=== PATIENT | female | born 1990 | race Caucasian/White ===

== ENCOUNTER 2018-11-06 13:29 | Emergency (ER) | payer SELFPAY ==
--- NOTE | 2018-11-06 15:26 | ER ---
Nurse's Notes [facility] Name: Graciela Graham Age: 27 yrs Sex: Female : 1990 Arrival Date: 11/06/2018 Time: 13:34 Bed 30 Private MD: None, None Diagnosis: Acute suppurative otitis media with spontaneous rupture of ear drum, unspecified ear Presentation: 11/06 13:56 Presenting complaint: Patient states: i have cold symptoms for 2 weeks and last night hj my L ear started to clogged up and today it started draining;. Transition of care: patient was not received from another setting of care. Onset of symptoms was November 06, 2018. Risk Assessment: Do you want to hurt yourself or someone else? Patient reports no desire to harm self or others. Initial Sepsis Screen: Does the patient meet any 2 criteria? No. Patient's initial sepsis screen is negative. Does the patient have a suspected source of infection? Yes:. Care prior to arrival: None. 13:56 Method Of Arrival: Ambulatory 13:56 Acuity: MANOLO 4 hj Triage Assessment: 13:58 General: Appears in no apparent distress. uncomfortable, Behavior is calm, cooperative, hj appropriate for age. Pain: Complains of pain in left ear. EENT: Reports pain in left ear. 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 - Social history:: Smoking status: Patient uses tobacco products, Patient uses alcohol. - Ebola Screening: : Patient negative for fever greater than or equal to 101.5 degrees Fahrenheit, and additional compatible Ebola Virus Disease symptoms Patient denies exposure to infectious person Patient denies travel to an Ebola-affected area in the 21 days before illness onset. Screenin:58 Abuse screen: Denies threats or abuse. Denies injuries from another. Nutritional hj screening: No deficits noted. Tuberculosis screening: No symptoms or risk factors identified. Fall Risk None identified. Assessment: 15:33 General: Appears in no apparent distress. comfortable, Behavior is calm, cooperative. mg2 Pain: Complains of pain in left ear Pain does not radiate. Pain currently is 3 out of 10 on a pain scale. Quality of pain is described as aching, Pain began gradually, 2-3 days ago. Is intermittent, Alleviated by medications, rest. Neuro: Level of Consciousness is awake, alert, obeys commands, Oriented to person, place, time, situation. Cardiovascular: Capillary refill < 3 seconds Patient's skin is warm and dry. Respiratory: Airway is patent Respiratory effort is even, unlabored, Respiratory pattern is regular, symmetrical. GI: No signs and/or symptoms were reported involving the gastrointestinal system. : No signs and/or symptoms were reported regarding the genitourinary system. EENT: Reports pain in left ear. Derm: Skin is intact, is healthy with good turgor, Skin is pink, warm \T\ dry. normal. Musculoskeletal: No signs and/or symptoms reported regarding the musculoskeletal system. Vital Signs: 13:58 BP 111 / 80; Pulse 87; Resp 18; Temp 97.8(TE); Pulse Ox 99% on R/A; Weight 52.16 kg; hj Height 4 ft. 11 in. (149.86 cm); Pain 4/10; 13:58 Body Mass Index 23.23 (52.16 kg, 149.86 cm) hj ED Course: 13:34 Patient arrived in ED. mr 13:35 None, None is Private Physician. mr 13:57 Triage completed. hj 13:58 Arm band placed on left wrist. hj 14:00 Patient has correct armband on for positive identification. Bed in low position. Call hj light in reach. Side rails up X 1. Adult w/ patient. 14:55 Johann Rubio PA is PHCP. cp 14:56 Mookie Weber MD is Attending Physician. cp 15:00 Deric Fuentes, STEVEN is Primary Nurse. mg2 15:22 Caprice Ac MD is Referral Physician. cp 15:35 No provider procedures requiring assistance completed. Patient did not have IV access mg2 during this emergency room visit. Administered Medications: No medications were administered Outcome: 15:24 Discharge ordered by . cp 15:35 Discharged to home ambulatory, with family. mg2 15:35 Condition: stable 15:35 Discharge instructions given to patient, family, Instructed on discharge instructions, follow up and referral plans. medication usage, Demonstrated understanding of instructions, follow-up care, medications, Prescriptions given X 2. 15:36 Patient left the ED. mg2 Signatures: Minal Holm ChuckieKwabena, RN RN hj Johann Rubio PA PA cp Gardose, Michele, STEVEN RN mg2 Corrections: (The following items were deleted from the chart) 14:00 13:58 Pulse 87bpm; Resp 18bpm; Pulse Ox 99% RA; Temp 97.8F Temporal; 52.16 kg; Height 4 hj ft. 11 in.; BMI: 23.2; Pain 4/10; hj
--- NOTE | 2018-11-06 15:26 | EDPHYS ---
Physician Documentation [facility] Name: Graciela Graham Age: 27 yrs Sex: Female : 1990 Arrival Date: 11/06/2018 Time: 13:34 Bed 30 Private MD: None, None ED Physician Mookie Weber HPI: 11/06 15:15 This 27 yrs old Female presents to ER via Ambulatory with complaints of Ear cp Pain. 15:15 The patient presents with drainage, that is purulent. The complaints affect the left cp ear. Onset: The symptoms/episode began/occurred this morning. Associated signs and symptoms: Pertinent positives: sore throat, cough, sinus trouble. Severity of symptoms: in the emergency department the symptoms are unchanged despite home interventions. 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 - Social history:: Smoking status: Patient uses tobacco products, Patient uses alcohol. - Ebola Screening: : Patient negative for fever greater than or equal to 101.5 degrees Fahrenheit, and additional compatible Ebola Virus Disease symptoms Patient denies exposure to infectious person Patient denies travel to an Ebola-affected area in the 21 days before illness onset. ROS: 15:16 Eyes: Negative for injury, pain, redness, and discharge. cp 15:16 Constitutional: Negative for body aches, chills, fever, poor PO intake. 15:16 ENT: Positive for drainage from ear(s), ear pain, sinus congestion, Negative for sore throat, difficulty swallowing, difficulty handling secretions. 15:16 Cardiovascular: Negative for chest pain. 15:16 Respiratory: Positive for cough, Negative for shortness of breath, wheezing. 15:16 Abdomen/GI: Negative for abdominal pain, nausea, vomiting, and diarrhea. 15:16 Skin: Negative for rash. 15:16 Neuro: Negative for dizziness, headache, weakness. 15:16 All other systems are negative. Exam: 15:18 Head/Face: Normocephalic, atraumatic. cp 15:18 Constitutional: The patient appears in no acute distress, alert, awake, non-toxic, well developed, well nourished. 15:18 Eyes: Periorbital structures: appear normal, Conjunctiva: normal, no exudate, no injection, Lids and lashes: appear normal, bilaterally. 15:18 ENT: External ear(s): are unremarkable, Ear canal(s): erythema, that is moderate, of the left canal, purulent discharge, that is moderate, in the left canal, TM's: rupture, on the left, with purulent discharge, Examination of the other ear shows no obvious abnormality, Nose: is normal, Mouth: Lips: moist, Oral mucosa: moist, Posterior pharynx: Airway: no evidence of obstruction, patent, Tonsils: no enlargement, no erythema, no exudate, swelling, is not appreciated, erythema, is not appreciated, exudate, is not appreciated. 15:18 Neck: ROM/movement: is normal, is supple, without pain, no range of motions limitations, no meningismus, no nuchal rigidity, Lymph nodes: no appreciated lymphadenopathy. 15:18 Chest/axilla: Inspection: normal, Palpation: is normal, no crepitus, no tenderness. 15:18 Cardiovascular: Rate: normal, Rhythm: regular. 15:18 Respiratory: the patient does not display signs of respiratory distress, Respirations: normal, no use of accessory muscles, no retractions, no splinting, no tachypnea, labored breathing, is not present, Breath sounds: are clear throughout, no decreased breath sounds, no stridor, no wheezing. 15:18 Abdomen/GI: Exam negative for discomfort, distension, guarding, Inspection: abdomen appears normal. 15:18 Skin: cellulitis, is not appreciated, no rash present. Vital Signs: 13:58 BP 111 / 80; Pulse 87; Resp 18; Temp 97.8(TE); Pulse Ox 99% on R/A; Weight 52.16 kg; hj Height 4 ft. 11 in. (149.86 cm); Pain 4/10; 13:58 Body Mass Index 23.23 (52.16 kg, 149.86 cm) MDM: 14:56 Patient medically screened. cp 15:21 Data reviewed: vital signs, nurses notes, and as a result, I will discharge patient. cp Counseling: I had a detailed discussion with the patient and/or guardian regarding: the historical points, exam findings, and any diagnostic results supporting the discharge/admit diagnosis, the need for outpatient follow up, an ENT specialist, to return to the emergency department if symptoms worsen or persist or if there are any questions or concerns that arise at home. Administered Medications: No medications were administered Disposition: 11/07 12:53 Co-signature as Attending Physician, Mookie Weber MD I agree with the assessment and wa plan of care. Disposition: 11/06/18 15:24 Discharged to Home. Impression: Acute suppurative otitis media with spontaneous rupture of ear drum, unspecified ear. - Condition is Stable. - Discharge Instructions: Otitis Media, Adult, Eardrum Perforation, [id number]. - Prescriptions for Augmentin 875- 125 mg Oral Tablet - take 1 tablet by ORAL route every 12 hours for 10 days; 20 tablet. Ciprodex 0.3- 0.1 % Otic Drops, Suspension - instill 4 drops by OTIC route every 12 hours for 7 days , for ears ONLY. instill drops in left ear canal; 1 Container. - Medication Reconciliation Form, Thank You Letter, Antibiotic Education, Prescription Opioid Use form. - Follow up: Caprice Ac MD; When: 1 week; Reason: Recheck today's complaints. - Problem is new. - Symptoms are unchanged. Signatures: Kwabena Noguera, RN RN Johann Lyons PA PA cp Appiah, William, MD MD ks Deric Fuentes RN RN mg2 Corrections: (The following items were deleted from the chart) 11/06 15:36 15:24 11/06/2018 15:24 Discharged to Home. Impression: Acute suppurative otitis media mg2 with spontaneous rupture of ear drum, unspecified ear. Condition is Stable. Forms are Medication Reconciliation Form, Thank You Letter, Antibiotic Education, Prescription Opioid Use. Follow up: Caprice Ac; When: 1 week; Reason: Recheck today's complaints. Problem is new. Symptoms are unchanged. cp
== END 2018-11-06 15:36 | disposition home or self-care (01) ==
LOC: ER 13:29
DX: H66.012 Acute suppurative otitis media with spontaneous rupture of ear drum, left ear (principal); Z72.0 Tobacco use
CPT/HCPCS: 99282

== ENCOUNTER 2019-06-11 13:05 | Emergency (ER) | payer SELFPAY ==
[2019-06-11] MEDS ORDERED: PEN G BENZ LA 2.4 MU/4 ML SYRINGE IM ONE (16:20)
--- NOTE | 2019-06-11 16:28 | ER ---
Nurse's Notes [facility] Name: Graciela Graham Age: 28 yrs Sex: Female : 1990 Arrival Date: 06/11/2019 Time: 13:08 Bed 25 Private MD: None, None Diagnosis: Contact with and (suspected) exposure to infections with a predominantly sexual mode of transmission Presentation: 06/11 13:25 Presenting complaint: Patient states: ex tested positive for syphilis yesterday, feels iw like she has a chancre on inside of mouth/lip, doesn't have a doctor. Transition of care: patient was not received from another setting of care. Onset of symptoms was June 11, 2019. Risk Assessment: Do you want to hurt yourself or someone else? Patient reports no desire to harm self or others. Initial Sepsis Screen: Does the patient meet any 2 criteria? No. Patient's initial sepsis screen is negative. Does the patient have a suspected source of infection? No. Patient's initial sepsis screen is negative. Care prior to arrival: None. 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 - Social history:: Smoking status: Patient uses tobacco products, smokes one-half pack cigarettes per day. - Ebola Screening: : Patient negative for fever greater than or equal to 101.5 degrees Fahrenheit, and additional compatible Ebola Virus Disease symptoms Patient denies exposure to infectious person Patient denies travel to an Ebola-affected area in the 21 days before illness onset No symptoms or risks identified at this time. Screenin:57 Abuse screen: Denies threats or abuse. Denies injuries from another. Nutritional mg2 screening: No deficits noted. Tuberculosis screening: No symptoms or risk factors identified. Fall Risk None identified. Assessment: 15:58 General: Appears in no apparent distress. comfortable, Behavior is calm, cooperative. mg2 Pain: Denies pain. Neuro: Level of Consciousness is awake, alert, obeys commands, Oriented to person, place, time, situation. Cardiovascular: Capillary refill < 3 seconds Patient's skin is warm and dry. Respiratory: Airway is patent Respiratory effort is even, unlabored, Respiratory pattern is regular, symmetrical. GI: No signs and/or symptoms were reported involving the gastrointestinal system. : No signs and/or symptoms were reported regarding the genitourinary system. EENT: Reports painless sore int the mouth. Derm: Skin is intact, is healthy with good turgor, Skin is pink, warm \T\ dry. normal. Musculoskeletal: Circulation, motion, and sensation intact. Capillary refill < 3 seconds. 16:33 Reassessment: patient up for discharge once injection time is clear. mg2 17:05 Reassessment: no reactions noted from the injection. mg2 Vital Signs: 13:27 BP 142 / 85; Pulse 103; Resp 18; Temp 98.1(O); Pulse Ox 100% on R/A; Weight 49.9 kg; iw Height 4 ft. 11 in. (149.86 cm); Pain 0/10; 16:40 BP 130 / 78; Pulse 90; Resp 18; Temp 98.4; Pulse Ox 100% on R/A; mg2 13:27 Body Mass Index 22.22 (49.90 kg, 149.86 cm) iw ED Course: 13:08 Patient arrived in ED. ag5 13:09 None, None is Private Physician. ag5 13:26 Triage completed. iw 13:27 Arm band placed on. iw 15:57 Deric Fuentes, RN is Primary Nurse. mg2 15:57 Patient did not have IV access during this emergency room visit. mg2 15:59 Patient has correct armband on for positive identification. mg2 16:02 Olesya Huffman FNP-C is [facility]. snw 16:02 Navdeep Rodriguez MD is Attending Physician. snw 17:05 No provider procedures requiring assistance completed. mg2 Administered Medications: 16:27 Drug: Bicillin L-A 2.4 million units {Note: 2 ml on each gluteal muscle.} Route: IM; mg2 Site: left gluteus; 17:05 Follow up: Response: No adverse reaction mg2 Outcome: 16:27 Discharge ordered by . snw 17:06 Discharged to home ambulatory. mg2 17:06 Condition: stable 17:06 Discharge instructions given to patient, Instructed on discharge instructions, follow up and referral plans. Demonstrated understanding of instructions, follow-up care. 17:06 Patient left the ED. mg2 Signatures: Olesya Huffman, EVGENY-C CHILD ADVOCATE-Csnw Phyllis Morgan, RN RN iw Deric Fuentes RN RN mg2 Darlene Starkey ag5
--- NOTE | 2019-06-11 16:28 | EDPHYS ---
Physician Documentation [facility] Name: Graciela Graham Age: 28 yrs Sex: Female : 1990 Arrival Date: 06/11/2019 Time: 13:08 Bed 25 Private MD: None, None ED Physician Navdeep Rodriguez HPI: 06/11 16:26 This 28 yrs old Female presents to ER via Ambulatory with complaints of STD snw Exposure. 16:26 Onset: The symptoms/episode began/occurred acutely. Associated signs and symptoms: The snw patient has no apparent associated signs or symptoms, Pertinent positives: anxiety. Modifying factors: The patient symptoms are alleviated by. The patient has not experienced similar symptoms in the past. The patient has been recently seen by a physician: with similar presenting complaints. 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 - Social history:: Smoking status: Patient uses tobacco products, smokes one-half pack cigarettes per day. - Ebola Screening: : Patient negative for fever greater than or equal to 101.5 degrees Fahrenheit, and additional compatible Ebola Virus Disease symptoms Patient denies exposure to infectious person Patient denies travel to an Ebola-affected area in the 21 days before illness onset No symptoms or risks identified at this time. ROS: 16:23 Constitutional: Negative for fever, chills, and weight loss, Eyes: Negative for injury, snw pain, redness, and discharge, ENT: Negative for injury, pain, and discharge, Neck: Negative for injury, pain, and swelling. 16:23 Cardiovascular: Negative for chest pain, palpitations, and edema, Respiratory: Negative for shortness of breath, cough, wheezing, and pleuritic chest pain, Abdomen/GI: Negative for abdominal pain, nausea, vomiting, diarrhea, and constipation, Back: Negative for injury and pain, : Negative for injury, bleeding, discharge, and swelling, MS/Extremity: Negative for injury and deformity, Skin: Negative for injury, rash, and discoloration, Neuro: Negative for headache, weakness, numbness, tingling, and seizure. 16:23 Psych: Positive for anxiety, over situation. Pt notified per ex partner of + result to syphilis. Pt has been tested and is awaiting results but requests treatment now. Exam: 16:22 Constitutional: This is a well developed, well nourished patient who is awake, alert, snw and in no acute distress. Head/Face: Normocephalic, atraumatic. Eyes: Pupils equal round and reactive to light, extra-ocular motions intact. Lids and lashes normal. Conjunctiva and sclera are non-icteric and not injected. Cornea within normal limits. Periorbital areas with no swelling, redness, or edema. ENT: Nares patent. No nasal discharge, no septal abnormalities noted. Tympanic membranes are normal and external auditory canals are clear. Oropharynx with no redness, swelling, or masses, exudates, or evidence of obstruction, uvula midline. Mucous membranes moist. Neck: Trachea midline, no thyromegaly or masses palpated, and no cervical lymphadenopathy. Supple, full range of motion without nuchal rigidity, or vertebral point tenderness. No Meningismus. Chest/axilla: Normal chest wall appearance and motion. Nontender with no deformity. No lesions are appreciated. Respiratory: Lungs have equal breath sounds bilaterally, clear to auscultation and percussion. No rales, rhonchi or wheezes noted. No increased work of breathing, no retractions or nasal flaring. Abdomen/GI: Soft, non-tender, with normal bowel sounds. No distension or tympany. No guarding or rebound. No evidence of tenderness throughout. Back: No spinal tenderness. No costovertebral tenderness. Full range of motion. Skin: Warm, dry with normal turgor. Normal color with no rashes, no lesions, and no evidence of cellulitis. MS/ Extremity: Pulses equal, no cyanosis. Neurovascular intact. Full, normal range of motion. Neuro: Awake and alert, GCS 15, oriented to person, place, time, and situation. Cranial nerves II-XII grossly intact. Motor strength 5/5 in all extremities. Sensory grossly intact. Cerebellar exam normal. Normal gait. 16:22 Cardiovascular: Rate: tachycardic. 16:22 Psych: Behavior/mood is pleasant, cooperative, anxious, Oriented to person, place, time. Vital Signs: 13:27 BP 142 / 85; Pulse 103; Resp 18; Temp 98.1(O); Pulse Ox 100% on R/A; Weight 49.9 kg; iw Height 4 ft. 11 in. (149.86 cm); Pain 0/10; 16:40 BP 130 / 78; Pulse 90; Resp 18; Temp 98.4; Pulse Ox 100% on R/A; mg2 13:27 Body Mass Index 22.22 (49.90 kg, 149.86 cm) iw MDM: 16:04 Patient medically screened. snw 16:29 Data reviewed: vital signs, nurses notes. Data interpreted: Pulse oximetry: on room air snw is 100 %. Interpretation: normal. Counseling: I had a detailed discussion with the patient and/or guardian regarding: the historical points, exam findings, and any diagnostic results supporting the discharge/admit diagnosis, the need for outpatient follow up, to return to the emergency department if symptoms worsen or persist or if there are any questions or concerns that arise at home. Special discussion: Based on the history and exam findings, there is no indication for further emergent testing or inpatient evaluation. I discussed with the patient/guardian the need to see the primary care provider for further evaluation of the symptoms. 06/11 16:19 Order name: Urine Dipstick--Ancillary (enter results); Complete Time: 16:30 bd 06/11 16:19 Order name: Urine --Ancillary (enter results); Complete Time: 16:30 bd 06/11 16:04 Order name: Urine Test (obtain specimen); Complete Time: 16:22 snw 06/11 16:04 Order name: Urine Dipstick-Ancillary (obtain specimen); Complete Time: 16:22 snw Administered Medications: 16:27 Drug: Bicillin L-A 2.4 million units {Note: 2 ml on each gluteal muscle.} Route: IM; mg2 Site: left gluteus; 17:05 Follow up: Response: No adverse reaction mg2 Disposition: 18:45 Co-signature as Attending Physician, Navdeep Rodriguez MD. ma2 Disposition: 06/11/19 16:27 Discharged to Home. Impression: Contact with and (suspected) exposure to infections with a predominantly sexual mode of transmission. - Condition is Stable. - Discharge Instructions: Sexually Transmitted Disease, What You Need to Know About Personal Safety, Adult, Safe Sex. - Medication Reconciliation Form, Thank You Letter, Antibiotic Education, Prescription Opioid Use form. - Follow up: Private Physician; When: 2 - 3 days; Reason: Recheck today's complaints, Continuance of care, Re-evaluation by your physician. Follow up: Emergency Department; When: As needed; Reason: Worsening of condition. Signatures: Dispatcher [employer] EDWI Olesya Huffman, EVGENY-C CONSTRUCTION ELECTRICIAN-Csnw Phyllis Morgan, STEVEN RN iw Navdeep Rodriguez MD MD ma2 Deric Fuentes RN RN mg2 Corrections: (The following items were deleted from the chart) 17:06 16:27 06/11/2019 16:27 Discharged to Home. Impression: Contact with and (suspected) mg2 exposure to infections with a predominantly sexual mode of transmission. Condition is Stable. Forms are Medication Reconciliation Form, Thank You Letter, Antibiotic Education, Prescription Opioid Use. Follow up: Private Physician; When: 2 - 3 days; Reason: Recheck today's complaints, Continuance of care, Re-evaluation by your physician. Follow up: Emergency Department; When: As needed; Reason: Worsening of condition. snw
[2019-06-11 16:29] LABS: Urine Blood NEGATIVE (NEG); Urine Glucose NEGATIVE (NEG); Urine Protein NEGATIVE (NEG); Urine Specific Gravity 1.025 (1.005-1.030)
[2019-06-11 17:49] VITALS: O2SAT 100
[2019-06-11 17:50] VITALS: BP 130/78; TEMP 98.4
== END 2019-06-11 17:06 | disposition home or self-care (01) ==
LOC: ER 13:05
DX: F41.9 Anxiety disorder, unspecified (principal); F17.210 Nicotine dependence, cigarettes, uncomplicated; Z20.2 Contact with and (suspected) exposure to infections with a predominantly sexual mode of transmission
CPT/HCPCS: 81003; 81025; 96372; 99283; J0561

== ENCOUNTER 2019-10-08 08:42 | Emergency (ER) | payer SELFPAY ==
--- OUTSIDE RECORDS SUMMARY | 2019-10-08 08:47 | XMS REPORT | Encounter Summary ---
:1990 Author Reason for Visit annual matcher exam Instructions 1. Contraception care management pap, IG + CT/NG/TV Flagyl 500 mg tablet Discussion Note Breast and pelvic exam performed. Pap obtained. Declines bloodwork. Will call in Flagyl 500 mg 1 po bid x 7 days. rtc in 1 year for wwe. ml Patient educational handouts: No information available. Plan of Care Reminders Provider Appointments Well on or around Khushi Odom Woman Exam 09/29/2020 [facility] Pap, IG + 09/29/[address] [facility]/NG/TV Referral None recorded. Procedures None recorded. Surgeries None recorded. Imaging None recorded. Medications Name Start Date Flagyl 500 mg tablet Take 1 tablet every 12 hours by oral route for 7 days. Medications Administered None recorded. Vitals Height Weight BMI Blood Pressure 4 ft 11 in 113.6 lbs 22.9 kg/m2 134/78 mm[Hg] Results Lab Results None recorded. Allergies Code Code System Name Reaction Severity Status Onset NKDA Problems No Known Problems Procedures None recorded. Vaccine List None recorded. Social History Tobacco Smoking Status Heavy Tobacco Smoker (1/2 PPD) Past Encounters 09/29/2019 Contraception Care Management Khushi Crowell RN SURGICAL: [address], [place] [address], Ph. History of Present Illness Note: <p>Patient is 28 yo female in for wwe. Is on WHP. Last pap- 10 years ago. LMP- 08/30/19., c/o vaginal discharge. Neg PMH. 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 Reported By: Patient Constitutional: Constitutional: no fatigue, no fever, no significant weight gain, no significant weight loss Skin: Skin: no abnormal moles, no rashes Eyes: Eyes: no irritation, no vision changes ENMT: ENMT: no hearing loss, no ear pain, no nose/sinus problems, no sore throat, no snoring, no dry mouth, no mouth ulcers Respiratory: Respiratory: no dyspnea / shortness of breath, no cough, no sputum production, no hemoptysis, no wheezing Cardiovascular: Cardiovascular: no chest pain, no palpitations, no orthopnea Gastrointestinal: Gastrointestinal: no heartburn, no dysphagia, no nausea, no vomiting, no abdominal pain, no bowel movement changes, no diarrhea, no constipation, no rectal bleeding Genitourinary: Genitourinary: no hematuria, no abnormal bleeding, no flank pain, no trouble urinating, no incontinence, no rash, no lesion, no discharge, no vaginal odor, no vaginal itching Endocrine: Menstrual: no menstrual problems, no PMDD symptoms. Menopausal: no menopausal symptoms. Sexual: no sexual problems Musculoskeletal: Musculoskeletal: no muscle aches, no muscle weakness, no arthralgias/joint pain, no back pain Neurological: Neurologic: no headaches, no dizziness, no LOC, no weakness, no numbness, no seizures Psychological: Psych: no depression, no alcoholism, no sleep disturbances Hematologic/Lymphatic: Hematologic/Lymphatic no swollen glands, no bruising Allergic/Immunologic: Allergy/Immunologic: no runny nose, no itching, no hives , no frequent sneezing Physical Exam Annual Oracle Database Consultant Exam DiClemente Reported By: Patient Constitutional: General Appearance: healthy-appearing, well-nourished, well-developed Psychiatric: Orientation: to time, to place, to person. Mood and Affect: active and alert, normal mood, normal affect Skin: Appearance: no rashes, no lesions Neck: Neck: supple, trachea midline, no masses, FROM. Thyroid: no enlargement, no nodules, non-tender Lungs: Respiratory Effort: no intercostal retractions, no accessory muscle usage. Auscultation: clear to auscultation, no wheezing, no rales/crackles, no rhonchi Cardiovascular: Auscultation: RRR, no murmur. Peripheral Vascular: no LLE edema, no RLE edema, no varicosities, no calf tenderness, no palpable cords, pedal pulses intact Abdomen: Auscultation/Inspection/Palpation: normal bowel sounds, soft, non-distended, no tenderness, no hepatomegaly, no splenomegaly, no masses, no CVA tenderness. Hernia: none palpated Breast: Inspection/Palpation: no skin changes, no abnormal secretions, nipple appearance normal, no tenderness, no distinct masses Female Genitalia: Vulva: no masses, no atrophy, no lesions. Vagina: no tenderness, no erythema, no vesicle(s) or ulcers, no cystocele, no rectocele, normal atrophy, abnormal vaginal discharge; thin white discharge noted. ml. Cervix: grossly normal, no discharge, no cervical motion tenderness, sample taken for a Pap smear. Uterus: normal size, normal shape, midline, no uterine prolapse, mobile, non-tender. Bladder/Urethra: normal meatus, no urethral discharge, no urethral mass, bladder non distended. Adnexa/Parametria: no parametrial tenderness, no parametrial mass, no adnexal tenderness, no ovarian mass Lymph Nodes: Palpation: non-palpable submandibular nodes, non-palpable axillary nodes, non-palpable inguinal nodes Rectal Exam: Rectum: normal perianal skin, normal sphincter tone, no hemorrhoids, no masses, heme negative stool
[2019-10-08 10:05] LABS: Urine Blood 2+ (NEG); Urine Glucose NEGATIVE (NEG); Urine Protein 1+ (NEG); Urine pH 6.5 (5.0-7.0)
--- NOTE | 2019-10-08 10:30 | RAD REPORT ---
EXAM DESCRIPTION: RAD - Chest Single View - 10/08/2019 10:22 am CLINICAL HISTORY: COUGH Chest pain. COMPARISON: No comparisons FINDINGS: Portable technique limits examination quality. The lungs are grossly clear. The heart is normal in size. No displaced fractures. IMPRESSION: No acute intrathoracic process suspected.
[2019-10-08 10:38] LABS: Absolute Lymphocytes (CBC) 1.6 K/uL (0.7-4.9); Basophils % 0.9 % (0-1.3); Hematocrit 41.1 % (36.0-45.0); MPV 8.4 fL (7.6-11.3); RBC Red Blood Cell Count 4.49 M/uL (3.86-4.86)
[2019-10-08 10:45] LABS: Barbiturates NEGATIVE (NEGATIVE); Benzodiazepines NEGATIVE (NEGATIVE); Cocaine NEGATIVE (NEGATIVE); METHAMPHETAM NEGATIVE (NEGATIVE); Methadone NEGATIVE (NEGATIVE); Opiates NEGATIVE (NEGATIVE); Phencyclidine NEGATIVE (NEGATIVE); THC Cannibis NEGATIVE (NEGATIVE)
[2019-10-08 11:09] LABS: Albumin 4.4 g/dL (3.4-5.0); Bilirubin Total 0.7 mg/dL (0.2-1.0); Potassium 3.7 mmol/L (3.5-5.1)
--- NOTE | 2019-10-08 11:13 | ER ---
Nurse's Notes [facility] Name: Graciela Graham Age: 28 yrs Sex: Female : 1990 Arrival Date: 10/08/2019 Time: 08:47 Bed 17 Private MD: Diagnosis: Weakness;Hypoglycemia, unspecified;Anxiety disorder, unspecified;Abnormal cytological findings in specimens from female genital organs-abnormal pap smear;Volume depletion Presentation: 10/08 09:03 Presenting complaint: Patient states: Im dying from cervical cancer. I had a pap smear sg several weeks ago and they said i have squamous cells, and need to have a biopsy performed. I think that Im not going to make it, Im having numbness in my arm and I think my vision is blurred. Transition of care: patient was not received from another setting of care. Onset of symptoms was October 08, 2019. Risk Assessment: Do you want to hurt yourself or someone else? Patient reports no desire to harm self or others. Initial Sepsis Screen: Does the patient meet any 2 criteria? No. Patient's initial sepsis screen is negative. Does the patient have a suspected source of infection? No. Patient's initial sepsis screen is negative. Care prior to arrival: None. 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 - Social history:: Smoking status: Patient/guardian denies using tobacco. - Ebola Screening: : Patient negative for fever greater than or equal to 101.5 degrees Fahrenheit, and additional compatible Ebola Virus Disease symptoms Patient denies exposure to infectious person Patient denies travel to an Ebola-affected area in the 21 days before illness onset No symptoms or risks identified at this time. Screenin:00 Abuse screen: Denies threats or abuse. Denies injuries from another. Nutritional ca1 screening: No deficits noted. Tuberculosis screening: No symptoms or risk factors identified. Fall Risk Assessment: 09:10 General: Appears in no apparent distress. slender, well developed, well nourished, sg Behavior is cooperative, anxious. Pain: Denies pain. Neuro: Level of Consciousness is awake, alert, obeys commands, Oriented to person, place, time, Toy Maker are equal bilaterally Moves all extremities. Gait is steady, Speech is normal, Facial symmetry appears normal, Reports blurred vision has resolved at this time numbness in left arm. Cardiovascular: Capillary refill is brisk in bilateral fingers Patient's skin is warm and dry. Chest pain is denied. Respiratory: Airway is patent Respiratory effort is even, unlabored, Respiratory pattern is regular, symmetrical. GI: No signs and/or symptoms were reported involving the gastrointestinal system. : No signs and/or symptoms were reported regarding the genitourinary system. EENT: No signs and/or symptoms were reported regarding the EENT system. Derm: Skin is pink, warm \T\ dry. Musculoskeletal: Circulation, motion, and sensation intact. Range of motion: intact in all extremities. 09:55 Reassessment: Patient appears in no apparent distress at this time. Patient is alert, ca1 oriented x 3, equal unlabored respirations, skin warm/dry/pink. Dr. Salgado at bedside. 11:02 Reassessment: Patient appears in no apparent distress at this time. Patient and/or ca1 family updated on plan of care and expected duration. Pain level reassessed. Patient is alert, oriented x 3, equal unlabored respirations, skin warm/dry/pink. 11:48 Reassessment: Patient appears in no apparent distress at this time. Patient is alert, ca1 oriented x 3, equal unlabored respirations, skin warm/dry/pink. Vital Signs: 09:05 Pulse 100; Resp 18; Temp 97.2; Pulse Ox 99% on R/A; Weight 61.23 kg (R); Height 5 ft. 4 sg in. (162.56 cm); Pain 6/10; 09:07 BP 118 / 83; sg 09:55 BP 112 / 84; Pulse 94; Resp 17 S; Pulse Ox 100% on R/A; ca1 11:02 BP 95 / 72; Pulse 91; Resp 17 S; Pulse Ox 98% on R/A; ca1 11:42 BP 103 / 74 Supine; Pulse 86; Resp 14; Pulse Ox 100% on R/A; mh5 11:42 BP 104 / 80 Sitting; Pulse 87; Resp 16; Pulse Ox 100% on R/A; mh5 11:42 BP 108 / 80 Standing; Pulse 99; Resp 15; Pulse Ox 100% on R/A; mh5 09:05 Body Mass Index 23.17 (61.23 kg, 162.56 cm) ED Course: 08:47 Patient arrived in ED. mr 09:02 Johann Salgado MD is Attending Physician. mike 09:03 Zachery Celis, RN is Primary Nurse. sg 09:03 Arm band placed on. sg 09:05 Triage completed. sg 09:50 Urine collected: clean catch specimen, clear. sg 10:10 No provider procedures requiring assistance completed. Initial lab(s) drawn, by md, ca1 sent to lab. Inserted saline lock: 20 gauge in right antecubital area, using aseptic technique. Blood collected. 10:23 Chest Single View XRAY In Process Unspecified. EDMS 11:04 EKG done, by technology director. reviewed by Johann Salgado MD. tc 11:11 Lizeth Morton MD is Referral Physician. mike 11:33 CT Head Brain wo Cont In Process Unspecified. EDMS 11:44 Patient has correct armband on for positive identification. Bed in low position. Call [facility] light in reach. Side rails up X 1. Warm blanket given. cardiac monitor on. Pulse ox on. NIBP on. 11:51 Lizeth Morton MD is Referral Physician. mike 12:14 IV discontinued, intact, bleeding controlled, No redness/swelling at site. Pressure ca1 dressing applied. Administered Medications: 11:24 Drug: D50W 25 ml Route: IVP; Site: right antecubital; ca1 12:13 Follow up: Response: No adverse reaction; Blood sugar is elevated; BGL 148 ca1 Intake: Outcome: 11:13 Discharge ordered by . mike 11:51 Discharge ordered by . mike 12:14 Discharged to home ambulatory. ca1 12:14 Condition: stable 12:14 Discharge instructions given to patient, Instructed on discharge instructions, follow up and referral plans. no drinking with medication, no driving heavy equipment, medication usage, Demonstrated understanding of instructions, follow-up care, medications, Prescriptions given X 2. 12:14 Patient left the ED. ca1 Signatures: Dispatcher [employer] EDMS Lalita, Zachery, STEVEN RN Johann Champion MD MD [facility] mr Laila Naik, degreasing solution reclaimer EKG [facility] Radha Quinn [facility] Glo Cruz, STEVEN RN ca1
--- NOTE | 2019-10-08 11:13 | EDPHYS ---
Physician Documentation [facility] Name: Graciela Graham Age: 28 yrs Sex: Female : 1990 Arrival Date: 10/08/2019 Time: 08:47 Bed 17 Private MD: ED Physician Johann Salgado HPI: 10/08 09:57 This 28 yrs old Female presents to ER via Ambulatory with complaints of [facility] Vision Problem, Numbness Of Arm. 09:57 The patient or guardian complains of pain. 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 - Social history:: Smoking status: Patient/guardian denies using tobacco. - Ebola Screening: : Patient negative for fever greater than or equal to 101.5 degrees Fahrenheit, and additional compatible Ebola Virus Disease symptoms Patient denies exposure to infectious person Patient denies travel to an Ebola-affected area in the 21 days before illness onset No symptoms or risks identified at this time. ROS: 09:58 Constitutional: Negative for fever, chills, and weight loss, Eyes: Negative for injury, mike pain, redness, and discharge, ENT: Negative for injury, pain, and discharge, Neck: Negative for injury, pain, and swelling, Cardiovascular: Negative for chest pain, palpitations, and edema, Respiratory: Negative for shortness of breath, cough, wheezing, and pleuritic chest pain, Back: Negative for injury and pain, MS/Extremity: Negative for injury and deformity, Skin: Negative for injury, rash, and discoloration, Neuro: Negative for headache, weakness, numbness, tingling, and seizure, Allergy/Immunology: Negative for hives, rash, and allergies, Endocrine: Negative for neck swelling, polydipsia, polyuria, polyphagia, and marked weight changes, Hematologic/Lymphatic: Negative for swollen nodes, abnormal bleeding, and unusual bruising. 09:58 Abdomen/GI: Positive for abdominal cramps. 09:58 : Positive for vaginal discharge. Exam: 09:58 Constitutional: This is a well developed, well nourished patient who is awake, alert, mike and in no acute distress. Head/Face: Normocephalic, atraumatic. Eyes: Pupils equal round and reactive to light, extra-ocular motions intact. Lids and lashes normal. Conjunctiva and sclera are non-icteric and not injected. Cornea within normal limits. Periorbital areas with no swelling, redness, or edema. ENT: Nares patent. No nasal discharge, no septal abnormalities noted. Tympanic membranes are normal and external auditory canals are clear. Oropharynx with no redness, swelling, or masses, exudates, or evidence of obstruction, uvula midline. Mucous membranes moist. Neck: Trachea midline, no thyromegaly or masses palpated, and no cervical lymphadenopathy. Supple, full range of motion without nuchal rigidity, or vertebral point tenderness. No Meningismus. Chest/axilla: Normal chest wall appearance and motion. Nontender with no deformity. No lesions are appreciated. Respiratory: Lungs have equal breath sounds bilaterally, clear to auscultation and percussion. No rales, rhonchi or wheezes noted. No increased work of breathing, no retractions or nasal flaring. Abdomen/GI: Soft, non-tender, with normal bowel sounds. No distension or tympany. No guarding or rebound. No evidence of tenderness throughout. Back: No spinal tenderness. No costovertebral tenderness. Full range of motion. Skin: Warm, dry with normal turgor. Normal color with no rashes, no lesions, and no evidence of cellulitis. MS/ Extremity: Pulses equal, no cyanosis. Neurovascular intact. Full, normal range of motion. Neuro: Awake and alert, GCS 15, oriented to person, place, time, and situation. Cranial nerves II-XII grossly intact. Motor strength 5/5 in all extremities. Sensory grossly intact. Cerebellar exam normal. Normal gait. Psych: Awake, alert, with orientation to person, place and time. Behavior, mood, and affect are within normal limits. 09:58 Cardiovascular: Rate: tachycardic, Rhythm: regular, Pulses: Pulses are 4+ in bilateral radial, brachial, femoral, popliteal, posterior tibial and and dorsalis pedis arteries.. 09:58 Respiratory: the patient does not display signs of respiratory distress, Respirations: normal, Breath sounds: are clear throughout, Respiratory rate: 17 09:58 Musculoskeletal/extremity: Extremities: all appear grossly normal, with no appreciated pain with palpation, ROM: no acute changes, intact in all extremities, Circulation is intact in all extremities. Pulses: Sensation intact. Compartment Syndrome exam of affected extremity: is normal. DVT Exam: No signs of deep vein thrombosis. no pain, no swelling, no tenderness, negative Homans' sign noted on exam, no appreciated bluish discoloration, no erythema, no increased warmth. Vital Signs: 09:05 Pulse 100; Resp 18; Temp 97.2; Pulse Ox 99% on R/A; Weight 61.23 kg (R); Height 5 ft. 4 sg in. (162.56 cm); Pain 6/10; 09:07 BP 118 / 83; sg 09:55 BP 112 / 84; Pulse 94; Resp 17 S; Pulse Ox 100% on R/A; ca1 11:02 BP 95 / 72; Pulse 91; Resp 17 S; Pulse Ox 98% on R/A; ca1 11:42 BP 103 / 74 Supine; Pulse 86; Resp 14; Pulse Ox 100% on R/A; mh5 11:42 BP 104 / 80 Sitting; Pulse 87; Resp 16; Pulse Ox 100% on R/A; mh5 11:42 BP 108 / 80 Standing; Pulse 99; Resp 15; Pulse Ox 100% on R/A; mh5 09:05 Body Mass Index 23.17 (61.23 kg, 162.56 cm) MDM: 09:02 Patient medically screened. [facility] 10:02 Data reviewed: vital signs, nurses notes, lab test result(s), EKG, radiologic studies, [facility] plain films. 10/08 09:49 Order name: Urine Dipstick--Ancillary (enter results); Complete Time: 10:50 10/08 09:49 Order name: Urine --Ancillary (enter results); Complete Time: 10:50 10/08 09:57 Order name: CBC with Diff; Complete Time: 10:50 [facility] 10/08 09:57 Order name: Comprehensive Metabolic Panel; Complete Time: 11:09 [facility] 10/08 09:57 Order name: Chest Single View XRAY; Complete Time: 10:50 [facility] 10/08 09:57 Order name: UDS; Complete Time: 10:50 [facility] 10/08 09:57 Order name: EKG; Complete Time: 09:58 [facility] 10/08 09:57 Order name: EKG - Nurse/Tech; Complete Time: 10:13 [facility] 10/08 11:10 Order name: Orthostatics; Complete Time: 11:45 [facility] 10/08 11:16 Order name: CT Head Brain wo Cont; Complete Time: 11:50 [facility] Administered Medications: 11:24 Drug: D50W 25 ml Route: IVP; Site: right antecubital; ca1 12:13 Follow up: Response: No adverse reaction; Blood sugar is elevated; BGL 148 ca1 Disposition: 10/08/19 11:51 Discharged to Home. Impression: Weakness, Hypoglycemia, unspecified, Anxiety disorder, unspecified, Abnormal cytological findings in specimens from female genital organs - abnormal pap smear, Volume depletion. - Condition is Stable. - Discharge Instructions: Panic Attacks, Hypoglycemia, Weakness, Fatigue, Blood Glucose Monitoring, Adult, Weakness, [id number], Panic Attacks, Vpzg-[id number], Hypoglycemia, [id number]-[id number]. - Prescriptions for Xanax 0.5 mg Oral Tablet - take 1 tablet by ORAL route every 8 hours As needed; 20 tablet. Zofran 4 mg Oral Tablet - take 1 tablet by ORAL route every 12 hours As needed; 20 tablet. - Medication Reconciliation Form, Thank You Letter, Antibiotic Education, Prescription Opioid Use form. - Follow up: Private Physician; When: 2 - 3 days; Reason: Recheck today's complaints, Continuance of care, Re-evaluation by your physician. Follow up: Lizeth Morton; When: 2 - 3 days; Reason: Recheck today's complaints, Re-evaluation by your physician. - Problem is new. - Symptoms have improved. Signatures: Dispatcher [employer] EDMS Zachery Celis RN RN Johann Champion MD MD cha Acob, Cheryl, RN RN ca1 Corrections: (The following items were deleted from the chart) 11:15 11:13 10/08/2019 11:13 Discharged to Home. Impression: Anxiety disorder, unspecified; [facility] Volume depletion; Hypoglycemia, unspecified; Abnormal cytological findings in specimens from female genital organs - abnormal pap smear. Condition is Stable. Forms are Medication Reconciliation Form, Thank You Letter, Antibiotic Education, Prescription Opioid Use. Follow up: Private Physician; When: 2 - 3 days; Reason: Recheck today's complaints, Continuance of care, Re-evaluation by your physician. Follow up: Lizeth Morton; When: 2 - 3 days; Reason: Recheck today's complaints, Continuance of care, Re-evaluation by your physician. Problem is new. Symptoms have improved. [facility] 12:14 11:51 10/08/2019 11:51 Discharged to Home. Impression: Weakness; Hypoglycemia, ca1 unspecified; Anxiety disorder, unspecified; Abnormal cytological findings in specimens from female genital organs - abnormal pap smear; Volume depletion. Condition is Stable. Discharge Instructions: Panic Attacks, Hypoglycemia, Weakness, Fatigue, Blood Glucose Monitoring, Adult, Weakness, [id number]-[id number], Panic Attacks, [id number]-Ihjx, Hypoglycemia, [id number]-[id number]. Prescriptions for Xanax 0.5 mg Oral Tablet - take 1 tablet by ORAL route every 8 hours As needed; 20 tablet, Zofran 4 mg Oral Tablet - take 1 tablet by ORAL route every 12 hours As needed; 20 tablet, Xanax 0.5 mg Oral Tablet - take 1 tablet by ORAL route every 8 hours As needed; 20 tablet, Zofran 4 mg Oral Tablet - take 1 tablet by ORAL route every 12 hours As needed; 20 tablet. and Forms are Medication Reconciliation Form, Thank You Letter, Antibiotic Education, Prescription Opioid Use. Follow up: Private Physician; When: 2 - 3 days; Reason: Recheck today's complaints, Continuance of care, Re-evaluation by your physician. Follow up: Lizeth Morton; When: 2 - 3 days; Reason: Recheck today's complaints, Re-evaluation by your physician. Problem is new. Symptoms have improved. [facility]
[2019-10-08] MEDS ORDERED: D50W 25 GM/50 ML SYRINGE/VIAL IV ONE (11:23)
--- NOTE | 2019-10-08 11:42 | RAD REPORT ---
EXAM DESCRIPTION: CT - Head Brain Wo Cont - 10/08/2019 11:33 am CLINICAL HISTORY: Dizziness, arm numbness, blurred vision COMPARISON: None. TECHNIQUE: Axial 5 mm thick images of the head were obtained without IV contrast. All CT scans are performed using dose optimization technique as appropriate and may include automated exposure control or mA/KV adjustment according to patient size. FINDINGS: No intracranial hemorrhage, mass, edema or shift of mid-line structures. No acute infarcti on changes seen. No abnormal extra-axial fluid collections. Ventricles are normal. Mastoid air cells and visualized portions of the paranasal sinuses are clear. No acute bony findings. IMPRESSION: Negative non-contrast CT head examination.
[2019-10-08 12:27] VITALS: TEMP 97.2
[2019-10-08 12:33] VITALS: BP 108/80; O2SAT 100
--- NOTE | 2019-10-08 13:22 | EKG ---
Test Date: 2019-10-08 Test Time: 10:14:35 It Desktop Support Technician: LITTLE MEASUREMENT RESULTS: Intervals: Rate: 100 NC: 118 QRSD: 86 QT: 352 QTc: 454 [place]: P: 79 NC: 118 QRS: 41 T: 60 INTERPRETIVE STATEMENTS: Normal sinus rhythm Biatrial enlargement Abnormal ECG No previous ECG available for comparison Electronically Signed On 10-08-19 13:20:55 LOFTSMAN by Tolu Childress
== END 2019-10-08 12:14 | disposition home or self-care (01) ==
LOC: ER 08:42
DX: E16.2 Hypoglycemia, unspecified (principal); E86.9 Volume depletion, unspecified; R87.69 Abnormal cytological findings in specimens from other female genital organs; F41.9 Anxiety disorder, unspecified
CPT/HCPCS: 36415; 70450; 71045; 80053; 80307; 81003; 81025; 82947; 85025; 93005; 96374; 99285

== ENCOUNTER 2019-10-26 11:58 | Emergency (ER) | payer OTHER, SELFPAY ==
--- NOTE | 2019-10-26 15:09 | RAD REPORT ---
EXAM DESCRIPTION: US - Transvaginal Study Probe - 10/26/2019 2:46 pm CLINICAL HISTORY: pelvic pain Pelvic pain. COMPARISON: No comparisons FINDINGS: The uterus is normal in size, shape and echotexture. The uterus measures 9.0 x 5.1 x 3.7 c m. The endometrial stripe measures 8 mm, normal. Both ovaries are normal in size, shape and echotexture. The right ovary measures 3.9 x 2.5 x 2.3 cm. The left ovary measures 2.4 x 1.9 x 1.7 cm. No ovarian or parovarian lesions. No adnexal masses. Normal Doppler blood flow was demonstrated to both ovaries. No significant pelvic ascites. IMPRESSION: Unremarkable study.
--- NOTE | 2019-10-26 15:20 | EDPHYS ---
Physician Documentation [facility] Name: Graciela Graham Age: 28 yrs Sex: Female : 1990 Arrival Date: 10/26/2019 Time: 12:01 Bed 30 Private MD: ED Physician Johann Salgado HPI: 10/26 13:46 This 28 yrs old Female presents to ER via Ambulatory with complaints of jmm Foreign body In Vagina. 13:46 The patient presents with vaginal discharge, FB. Onset: The symptoms/episode jmm began/occurred 4 month(s) ago. Modifying factors: The symptoms are alleviated by nothing, the symptoms are aggravated by nothing. Associated signs and symptoms: Pertinent positives: fever. This is a 28 year old female with no chronic medical conditions that presents to the ED with complaints of 4 months of vaginal discharge. Patient states she had an abnormal pap smear and is scheduled to see oncology. Patient states having fever and feeling faint over the past month with intermittent episodes of heavy vaginal bleeding. . 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 - Coronavirus screen:: The patient has NOT traveled to [place], [place], or [place] in the past 14 days. - Social history:: Smoking status: . - Ebola Screening: : Patient denies exposure to infectious person. ROS: 13:46 Cardiovascular: Negative for chest pain, palpitations, and edema, Respiratory: Negative jmm for shortness of breath, cough, wheezing, and pleuritic chest pain, Abdomen/GI: Negative for abdominal pain, nausea, vomiting, diarrhea, and constipation. 13:46 Skin: Negative for injury, rash, and discoloration. 13:46 Constitutional: Positive for fatigue. 13:46 : Positive for vaginal bleeding, vaginal discharge. 13:46 MS/extremity: Positive for 13:46 Neuro: Positive for near syncope. 13:46 All other systems are negative. Exam: 13:46 Constitutional: This is a well developed, well nourished patient who is awake, alert, jmm and in no acute distress. Head/Face: atraumatic. Eyes: EOMI, no conjunctival erythema appreciated ENT: Moist Mucus Membranes Neck: Trachea midline, Supple Chest/axilla: Normal chest wall appearance and motion. Cardiovascular: Regular rate and rhythm. No edema appreciated Respiratory: Normal respirations, no respiratory distress appreciated Abdomen/GI: Non distended, soft Back: Normal ROM Skin: General appearance color normal MS/ Extremity: Moves all extremities, no obvious deformities appreciated, no edema noted to the lower extremities Neuro: Awake and alert, normal gait Psych: Behavior is normal, Mood is normal, Patient is cooperative and pleasant Vital Signs: 12:08 BP 125 / 89; Pulse 96; Resp 18; Temp 98.5(TE); Pulse Ox 100% on R/A; Weight 49.9 kg; tw2 Height 5 ft. 0 in. (152.40 cm); Pain 6/10; 12:08 Body Mass Index 21.48 (49.90 kg, 152.40 cm) tw2 MDM: 13:26 Patient medically screened. mike 15:17 Data reviewed: vital signs, nurses notes. Counseling: I had a detailed discussion with [facility] the patient and/or guardian regarding: the historical points, exam findings, and any diagnostic results supporting the discharge/admit diagnosis, lab results, radiology results, the need for outpatient follow up, to return to the emergency department if symptoms worsen or persist or if there are any questions or concerns that arise at home. 15:18 ED course: Abnormal discharge noted in pelvic exam. Patient is advised to folllow up [facility] with [employer] for further evaluation. No TOA or masses appreciated on US. . 10/26 13:44 Order name: Wet Prep; Complete Time: 14:56 [facility] 10/26 13:44 Order name: Pelvic Exam Setup; Complete Time: 13:55 [facility] 10/26 14:46 Order name: Transvaginal Study Probe; Complete Time: 15:15 EDMS Administered Medications: No medications were administered Disposition: 10/27 08:43 Co-signature as Attending Physician, Johann Salgado MD I agree with the assessment and mike plan of care. 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 Disposition: 10/26/19 15:19 Discharged to Home. Impression: Pelvic and perineal pain, Person with feared health complaint in whom no diagnosis is made. - Condition is Stable. - Discharge Instructions: Pelvic Pain, Female. - Medication Reconciliation Form, Thank You Letter, Antibiotic Education, Prescription Opioid Use form. - Follow up: Private Physician; When: 2 - 3 days; Reason: Recheck today's complaints, Continuance of care, Re-evaluation by your physician. Signatures: Dispatcher [employer] Caprice Dotson RN RN Johann Salgado MD MD cha Mickail, Joel, PA PA Caty Alvares, RN RN tw2 Corrections: (The following items were deleted from the chart) 10/26 14:46 14:20 Pelvis Complete+US.RAD.BRZ ordered. [facility] 15:18 15:17 Counseling: I had a detailed discussion with the patient and/or guardian akbar regarding: the historical points, exam findings, and any diagnostic results supporting the discharge/admit diagnosis, akbar 15:33 15:19 10/26/2019 15:19 Discharged to Home. Impression: Pelvic and perineal pain; Person sv with feared health complaint in whom no diagnosis is made. Condition is Stable. Forms are Medication Reconciliation Form, Thank You Letter, Antibiotic Education, Prescription Opioid Use. Follow up: Private Physician; When: 2 - 3 days; Reason: Recheck today's complaints, Continuance of care, Re-evaluation by your physician. akbar
--- NOTE | 2019-10-26 15:20 | ER ---
Nurse's Notes [facility] Name: Graciela Graham Age: 28 yrs Sex: Female : 1990 Arrival Date: 10/26/2019 Time: 12:01 Bed 30 Private MD: Diagnosis: Pelvic and perineal pain;Person with feared health complaint in whom no diagnosis is made Presentation: 10/26 12:06 Presenting complaint: Patient states: i started having some weird discharge 4 months tw2 ago and it has been everyday since, i have been tested for std's and it is negative, i pulled out what looks like a tampon and i think that there is still some left and i am having pain and have been running a fever off and on for 2 days. Transition of care: patient was not received from another setting of care. Onset of symptoms was October 26, 2019. Risk Assessment: Do you want to hurt yourself or someone else? Patient reports no desire to harm self or others. Initial Sepsis Screen: Does the patient meet any 2 criteria? No. Patient's initial sepsis screen is negative. Does the patient have a suspected source of infection? No. Patient's initial sepsis screen is negative. Care prior to arrival: None. 12:06 Method Of Arrival: Ambulatory tw2 12:06 Acuity: MANOLO 3 tw2 Triage Assessment: 12:08 General: Appears in no apparent distress. slender, Behavior is calm, cooperative, tw2 appropriate for age. Pain: Complains of pain in pelvis. 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 - Coronavirus screen:: The patient has NOT traveled to [place], [place], or [place] in the past 14 days. - Social history:: Smoking status: . - Ebola Screening: : Patient denies exposure to infectious person. Screenin:24 Abuse screen: Denies threats or abuse. Denies injuries from another. Nutritional iw screening: No deficits noted. Tuberculosis screening: No symptoms or risk factors identified. Fall Risk None identified. Assessment: 13:24 General: Appears in no apparent distress. Behavior is calm, cooperative. Neuro: Level iw of Consciousness is awake, alert, obeys commands, Oriented to person, place, time, situation. Cardiovascular: Patient's skin is warm and dry. Respiratory: Respiratory effort is even, unlabored. : Reports discharge, from vagina that is. Derm: Skin is intact, is healthy with good turgor. Musculoskeletal: Range of motion: intact in all extremities. 13:56 General: Appears in no apparent distress. comfortable, well developed, Behavior is sv calm, cooperative, appropriate for age. Neuro: Level of Consciousness is awake, alert, obeys commands, Oriented to person, place, time, situation, Moves all extremities. Full function. Respiratory: Airway is patent Respiratory effort is even, unlabored, Respiratory pattern is regular, symmetrical. : Reports discharge, from vagina that is. Derm: Skin is intact, Skin is pink, warm \T\ dry. Musculoskeletal: Range of motion: intact in all extremities. 14:13 Reassessment: Ravi at the bedside with [facility] performing a pelvic exam. sv 15:33 Reassessment: Patient appears in no apparent distress at this time. No changes from sv previously documented assessment. Patient and/or family updated on plan of care and expected duration. Pain level reassessed. Patient is alert, oriented x 3, equal unlabored respirations, skin warm/dry/pink. Vital Signs: 12:08 BP 125 / 89; Pulse 96; Resp 18; Temp 98.5(TE); Pulse Ox 100% on R/A; Weight 49.9 kg; tw2 Height 5 ft. 0 in. (152.40 cm); Pain 6/10; 12:08 Body Mass Index 21.48 (49.90 kg, 152.40 cm) tw2 ED Course: 12:01 Patient arrived in ED. fj1 12:08 Triage completed. tw2 12:08 Arm band placed on. tw2 13:16 Ravi Godoy PA is PHCP. akbar 13:16 Johann Salgado MD is Attending Physician. jmm 13:23 Phyllis Morgan, RN is Primary Nurse. iw 13:48 Primary Nurse role handed off by Phyllis Morgan, STEVEN sv 13:48 Arash, Caprice, RN is Primary Nurse. sv 13:56 Patient has correct armband on for positive identification. Placed in gown. Bed in low sv position. Call light in reach. Pulse ox on. NIBP on. Door closed. Head of bed elevated. 14:14 Assist provider with pelvic exam: Set up pelvic tray. Performed by Ravi lucio Specimens sent to lab. Patient tolerated well. 14:27 Patient taken to ultrasound. via wheelchair. sv 14:39 Patient moved back from ultrasound. sv 14:45 Awaiting radiology results. sv 14:48 Transvaginal Study Probe In Process Unspecified. EDMS 15:33 Patient did not have IV access during this emergency room visit. sv Administered Medications: No medications were administered Outcome: 15:19 Discharge ordered by . [facility] 15:33 Patient left the ED. sv 15:33 Discharged to home ambulatory. sv 15:33 Condition: stable 15:33 Discharge instructions given to patient, Instructed on discharge instructions, follow up and referral plans. Demonstrated understanding of instructions, follow-up care. Signatures: Dispatcher [employer] Caprice Dotson, RN Ravi Dennis PA PA jmm Williams, Irene, RN STEVEN iw Caty Aviles RN RN tw2 Michael Sultana fj1 Corrections: (The following items were deleted from the chart) 14:28 14:14 Assist provider with pelvic exam: Set up pelvic tray. Performed by Ravi REYES sv 14:46 14:45 To radiology for Pelvis Complete+US.RAD.BRZ. sv EDMS
[2019-10-26 15:50] VITALS: BP 125/89; TEMP 98.5; O2SAT 100
== END 2019-10-26 15:33 | disposition home or self-care (01) ==
LOC: ER 11:58
DX: Z71.1 Person with feared health complaint in whom no diagnosis is made (principal)
CPT/HCPCS: 76830; 87210; 99284